=== PATIENT | male | born 1950 | race Caucasian/White ===

== ENCOUNTER → 2019-07-05 08:16 | Outpatient (CLI) | payer MEDICARE, SELFPAY ==
--- NOTE | ~2019-07-05 | XR_ITS ---
EXAMINATION: XR chest 2V EXAM DATE: 07/05/2019 08:38 INDICATION: Dyspnea. TECHNIQUE: Frontal and lateral projections of the chest obtained and reviewed. After initial review, patient was called back for additional frontal image with nipple markers. Comparison is made to prior examination from 01/16/2013. FINDINGS: Right basilar nodular density is patient's nipple. The lungs are clear. There are no pleu ral effusions. The cardiomediastinal silhouette is within normal limits. There is no pneumothorax s uspected. The bones and soft tissues are unremarkable. IMPRESSION: Unremarkable chest x-ray exam. Reviewed, dictated and finalized at location B. TER [employer]
== END ==
PROVIDERS: PCP Family Medicine Adolescent Medicine; Visit Provider Family Medicine Adolescent Medicine
DX: R06.09 Other forms of dyspnea (principal)
CPT/HCPCS: 71046

== ENCOUNTER 2020-08-28 08:00 | Outpatient (CLI) | payer MEDICARE, SELFPAY ==
--- NOTE | 2020-08-29 15:20 | WPDPFTINT ---
PFT Interpretation This PFT met all criteria for ATS standards and reproducibility FEV/FVC post bronchodilator 83% FEV1 122% FVC 112% TLC 102% RV 85% RV/TLC 30% DLCO 85% when adjusted for alveolar volume but not adjusted for hemoglobin Flow volume loops were normal Impression: Normal PFT. Clinical correlation is advised.
== END 2020-08-28 08:01 | disposition home or self-care (01) ==
PROVIDERS: PCP Family Medicine Adolescent Medicine; Visit Provider Internal Medicine Cardiovascular Disease
DX: R06.00 Dyspnea, unspecified (principal)
CPT/HCPCS: 94375; 94726; 94729

== ENCOUNTER 2020-09-07 07:41 | Outpatient (CLI) | payer MEDICARE, SELFPAY ==
--- NOTE | ~2020-09-07 | US_ITS ---
EXAMINATION: US right upper quadrant EXAM DATE: 09/07/2020 08:17 INDICATION: Elevated liver function tests. TECHNIQUE: Multiple grayscale and Doppler images of the abdomen right upper quadrant were obtained (b y a technologist who performed the scan) and subsequently reviewed. There is no prior study for mike gann. FINDINGS: The pancreatic head and body are normal in appearance. The pancreatic tail is not visualized. The l iver has normal echogenicity and contour. There are no focal liver lesions identified. There is no evidence of intrahepatic biliary duct dilation. Portal venous flow was seen in the hepatopedal, nor mal direction and has normal Doppler waveform. No right-sided hydronephrosis. Common bile duct measures 5 mm, which is normal. The gallbladder wall is normal in thickness, with ex pected amount of distention. No sonographic evidence of pericholecystic fluid. There is no cholelit hiases. Technologist performing exam reports patient did not demonstrate sonographic Pugh's sign. Please note that this sign is less reliable in patients who have received pain medication. IMPRESSION: 1. Unremarkable abdominal ultrasound exam. Reviewed, dictated and finalized at location A.
== END 2020-09-07 07:42 | disposition home or self-care (01) ==
PROVIDERS: PCP Family Medicine Adolescent Medicine; Visit Provider Family Medicine Adolescent Medicine
DX: R79.89 Other specified abnormal findings of blood chemistry (principal)
CPT/HCPCS: 76705

== ENCOUNTER 2020-11-19 07:35 | Outpatient (CLI) | payer MEDICARE, SELFPAY ==
--- NOTE | ~2020-11-19 | MR_ITS ---
EXAMINATION: MR abdomen wo/w con DATE: 11/19/2020 09:30 INDICATION: Abnormal findings of blood chemistry with increased liver enzyme levels. TECHNIQUE: Magnetic resonance imaging (MRI) of the abdomen was performed without intravenous contrast . Sequences included coronal T2-weighted SS-FSE, coronal and axial FS 2D-FIESTA, axial STIR FSE, axi al T2-weighted SS-FSE, axial T2-weighted FS SS-FSE, axial diffusion-weighted SE, axial dual-echo T1-w eighted FSPGR, and axial and coronal T1-weighted LAVA. Postcontrast axial T1-weighted LAVA images wer e obtained in a time course. Postcontrast coronal T1-weighted LAVA images were obtained. COMPARISON: Ultrasound dated 09/07/[address] abdomen and pelvis dated 07/24/2017 FINDINGS: Heart size is normal. No pericardial or pleural effusion. There is mild intrahepatic biliary ductal d ilation in the right hepatic lobe with the dilated bile ducts converging at the right corbin hepatis. No definitive enhancing mass identified at the relatively abrupt transition point although evaluation is limited by moderate amount of motion artifact on the postcontrast images. Common bile duct measur es 2 mm in diameter which is normal. Liver is otherwise normal. Gallbladder, spleen, bilateral adrena l glands and kidneys are normal. 7 x 5 mm nonenhancing cystic lesion along side the common bile duct at the head of the pancreas. Pancreas is otherwise normal. Multiple diverticula along the visualized portions of the colon without adjacent inflammatory change to suggest diverticulitis. No bowel obstru ction. No pathologically enlarged abdominal lymphadenopathy. Normal bone marrow signal throughout. IMPRESSION: 1. Biliary ductal dilation in the right hepatic lobe with transition point at the right corbin hepatis . No definitive enhancing mass identified although sensitivity for a small lesion is decreased due to moderate amount of motion artifact on the postcontrast sequences. Consider ERCP for further evaluati on. 2. 5 x 7 mm cystic lesion at the head of the pancreas. The differential diagnosis includes pseudocyst , choledochal cyst arising from the common bile duct, intraductal papillary mucinous neoplasm (IPMN), mucinous cystic neoplasm (MCN), and the less common serous cystadenoma and neuroendocrine tumor. Cor relate for history of prior pancreatitis and consider one-year follow-up pre and postcontrast MRI. 3. Diverticulosis. Reviewed, dictated and finalized at location A. IMPRESSION: 1. Biliary ductal dilation in the right hepatic lobe with transition point at t he right corbin hepatis. No definitive enhancing mass identified although sensit ivity for a small lesion is decreased due to moderate amount of motion artifact on the postcontrast sequences. Consider ERCP for further evaluation. 2. 5 x 7 mm cystic lesion at the head of the pancreas. The differential diagnos is includes pseudocyst, choledochal cyst arising from the common bile duct, int raductal papillary mucinous neoplasm (IPMN), mucinous cystic neoplasm (MCN), an d the less common serous cystadenoma and neuroendocrine tumor. Correlate for hi story of prior pancreatitis and consider one-year follow-up pre and postcontras t MRI. 3. Diverticulosis.
[2020-11-19 08:47] LABS: Estimated Glomerular Filt Rate 50
== END 2020-11-19 07:36 | disposition home or self-care (01) ==
PROVIDERS: PCP Family Medicine Adolescent Medicine; Visit Provider Internal Medicine Gastroenterology
DX: R79.89 Other specified abnormal findings of blood chemistry (principal); K57.30 Diverticulosis of large intestine without perforation or abscess without bleeding; K86.9 Disease of pancreas, unspecified
CPT/HCPCS: 74183; A9577

== ENCOUNTER → 2021-03-22 10:50 | Outpatient (CLI) | payer MEDICARE, SELFPAY ==
--- NOTE | ~2021-03-22 | US_ITS ---
EXAMINATION: US abdomen complete DATE: 03/22/2021 11:25 INDICATION: Right upper quadrant swelling TECHNIQUE: Multiple grayscale and Doppler ultrasound images of the abdomen were obtained. COMPARISON: 09/07/2020; MRI, 11/19/2020 FINDINGS: Bowel gas obscures visualization of the pancreas. The visualized portions of the pancreas a re unremarkable. The liver is normal with normal echogenicity and echotexture. No surface nodularity. Normal hepatopetal flow in the main portal vein. The gallbladder is normal with no abnormal wall thi ckening, pericholecystic fluid or stones. The normal common bile duct measures 5 mm. There was no son ographic Pugh sign. The visualized portions of the aorta and inferior vena cava are normal. The right kidney measures 10.3 x 5.5 x 5.2 cm. The left kidney measures 12.0 x 6.1 x 4.8 cm. The kidn eys demonstrate normal parenchymal echogenicity. There is no hydronephrosis. The spleen is normal in appearance and measures 12.9 cm. IMPRESSION: 1. No sonographic correlate for the patient's symptoms. Reviewed, dictated and finalized at location A.
== END ==
PROVIDERS: PCP Family Medicine Adolescent Medicine; Visit Provider Physician Assistant
DX: R19.01 Right upper quadrant abdominal swelling, mass and lump (principal)
CPT/HCPCS: 76700